=== PATIENT | male | born 1945 ===

== ENCOUNTER 2017-04-12 12:15 | Emergency (ER) | payer MEDICARE, OTHER ==
[2015-10-15 09:32] VITALS: BMI 25.4
[~2017-04-12 12:15] MED LIST: BAYER ASPIRIN325 MG PO; COLACE100 MG PO; LOVENOX40 MG/0.4 SC; MILK OF MAGNESI30 ML PO; OXYCODONE HCL5 MG PO; PRINIVIL20 MG PO; TOPROL XL25 MG PO
== END 2017-04-12 14:12 | disposition home or self-care (01) ==
LOC: D.ER 12:15
DX: S61.212A Laceration without foreign body of right middle finger without damage to nail, initial encounter (principal); W25.XXXA Contact with sharp glass, initial encounter; Y93.89 Activity, other specified; Y92.019 Unspecified place in single-family (private) house as the place of occurrence of the external cause; I10 Essential (primary) hypertension